=== PATIENT | male | born 1965 | race Hispanic/Latino ===

== ENCOUNTER 2016-06-29 17:29 | Inpatient (IN) | payer OTHER ==
[~2016-06-29] VITALS: Ht 182.9 cm; Wt 107.7 kg
[~2016-06-29 17:29] MED LIST: ALLOPURINOL100 MG PO; INDOCIN25 MG OR; LORTAB 10 PO; LORTAB 10-325 M1 TAB PO; MEDDOSEPAK OR; MOTRIN800 MG PO; NAPROSYN500 MG PO; NO; NO MEDS; PERCOCET 5/325M1 TAB OR
--- NOTE | 2016-06-29 17:30 | NUR ---
PT TRANSPORTED TO ROOM 9 VIA W/C.
--- NOTE | 2016-06-29 18:01 | NUR ---
PT HAD EMESIS [id number] MONTES LIQUID. NOTIFIED.NEW ORDERS RECEIVED. PT GIVEN PHENERGAN VIA IV IN 50CC NS. PT TOLERATED BOLUS.
[2016-06-29 18:08] LABS: HEMATOCRIT 51.1 % (39.0-50.0); HEMOGLOBIN 17.9 g/dl (14.0-18.0); IMMATURE GRANULOCYTES 0.3 % (0.0-1.0); MEAN CELL VOLUME 86.8 fL CALC (80.0-100.0); MEAN CORPUSCULAR HGB 30.4 pG CALC (26.0-32.0); NEUT# 11.74 thou/uL (1.82-7.42); RED BLOOD COUNT 5.89 mill/uL (4.70-6.10)
[2016-06-29 18:14] LABS: AMYLASE 53 u/l (30-110); LIPASE 127 u/l (23-300)
[2016-06-29 18:16] LABS: ALBUMIN 5.1 g/dL (3.2-5.0); ALKALINE PHOSPHATASE 94 u/l (38-126); ANION GAP 21 (6-22 (CALC)); BILIRUBIN, TOTAL 1.1 mg/dL (0.0-1.4); BUN 17 mg/dL (9-20); BUN/CREATININE RATIO 12 (12-20 (CALC)); CALCIUM 9.8 mg/dL (8.4-10.2); CARBON DIOXIDE 25 mmol/l (22-30); CHLORIDE 105 mmol/l (95-108); CREATININE 1.4 mg/dL (0.7-1.3); GFR 53 ML/MIN (>=60 (CALC)); GFR FOR AFR.AMER. > 60 ML/MIN (>=60 (CALC)); GLUCOSE 123 mg/dL (75-110); POTASSIUM 3.8 mmol/l (3.5-5.1); SGOT/AST 53 u/l (17-59); SGPT/ALT 81 u/l (21-72); SODIUM 148 mmol/l (137-146)
--- NOTE | 2016-06-29 18:18 | NUR ---
INITIATED IVF BOLUS FOR BP 77/48. PT ALERT AND CONVERSIVE. MD AWARE. MONITORED PER RN
[2016-06-29 18:27] LABS: MYOGLOBIN 81 ng/mL (0 - 121)
--- NOTE | 2016-06-29 18:36 | NUR ---
PT WITH SLIGHT TREMULOUS SHAKING. WARM BLANKETS APPLIED PT IS RECEIVING FLUID BOLUS IV.BP 117/76
--- NOTE | 2016-06-29 18:50 | NUR ---
RECEIVED REPORT FROM MARIA C HUBBARD. IN ROOM INTRODICED SELF TO PT. NO C/O AT THIS TIME. IVF INFUSING WELL.
--- NOTE | 2016-06-29 18:56 | NUR ---
PO ASA GIVEN PER MD ORDER.
--- NOTE | 2016-06-29 19:56 | NUR ---
PT. RESTING QUIETLY ON STRETCHER, NO C/O CP OR SOB OFFERED.
[2016-06-29 20:43] LABS: URINE BILIRUBIN - DIPSTICK NEGATIVE (NEGATIVE); URINE BLOOD DIPSTICK NEGATIVE (NEGATIVE); URINE CLARITY CLEAR; URINE COLOR YELLOW; URINE GLUCOSE - DIPSTICK NEGATIVE (NEGATIVE); URINE KETONE TRACE mg/dL (NEGATIVE); URINE LEUK ESTERASE NEGATIVE (NEGATIVE); URINE NITRITE - DIPSTICK NEGATIVE (Negative); URINE PH 7.5 (4.5-8.0); URINE PROTEIN - DIPSTICK 30 mg/dL (NEG-TRACE); URINE SPECIFIC GRAVITY 1.015
[2016-06-29 20:47] LABS: BARBITURATES NEGATIVE (NEGATIVE); COCAINE NEGATIVE (NEGATIVE); METHADONE NEGATIVE (NEGATIVE); OXCYCODONE NEGATIVE (NEGATIVE); TETRAHYDROCANNABIONOL NEGATIVE (NEGATIVE); TRICYLIC ANTIDEPRESSANTS NEGATIVE (NEGATIVE)
[2016-06-29 20:54] LABS: URINE RBC 0-2 RBC/hpf (0-5); URINE WBC 0-2 WBC/hpf (0-5)
--- NOTE | 2016-06-29 20:56 | NUR ---
PT. AVANIS PACKED FOR ADMISSION, NO C/O.
--- NOTE | 2016-06-29 21:02 | NUR ---
MD IN ROOM TO DISCUSS CLINICAL FINDINGS WITH PT AND ALSO MAKE HIM AWARE OF ADMISSION. VERBALIZED UNDERSTANDING.
--- NOTE | 2016-06-29 21:20 | NUR ---
Admission Note Report Given to: SHAVON HUBBARD Transported by: Wheelchair X Stretcher Transported with: Nurse X Transporter X Patent IV O2 X Maori Physiotherapist
--- NOTE | 2016-06-29 21:30 | NUR ---
PT. TRANSFERED TO NC VIA STRETCHER, NO C/O.
--- NOTE | 2016-06-29 21:50 | NUR ---
PT.ARRIVED TO FLOOR ACCOMPANIED BY HAYDEE WONG,OF ED; PT.APPEARS STABLE AT THIS TIME, VERY GROGGY, BUT DENIES ANY PAIN; PT.ORIENTED TO ROOM,CALL LIGHT SYSTEM, BED, URINAL; V/S ASSESSED AND IV BOLUS ADMINISTERED ORDERED; CALL LIGHT AND BST W/IN REACH, PO FLUIDS PROVIDED AND PT.ENCOURAGED TO CALL FOR ASSISTANCE NEEDED.
[2016-06-29 21:55] VITALS: BP 98/68
[2016-06-29 23:25] VITALS: BP 119/71
--- NOTE | 2016-06-29 23:30 | NUR ---
PT.MEDICATED ORDERS PROVIDE AND IV FLUID BOLUS COMPLETED AND IV FLUIDS CONTINUED AT 100MLS/HR., PT.DENIES PAIN AT THIS TIME, STATES IT COMES IN WAVES NOW IN MID ABD, POINTING TO SURROUNDING NAVAL AREA; O2 AT BS NEEDED, PT.SAT 98%RA, NOT ON O2 AT THIS TIME.
--- NOTE | 2016-06-30 03:45 | NUR ---
PT.CALLED TO REPORT HIS IV FELL OUT, IV APPEARS TO BE INTACT, MINIMAL BLEEDING FROM IV SITE; NEW IV ACCESSED AND FLUIDS CONTINUED; PT.URINAL EMPTIED OF 400AMBER URINE W/SEDIMENT, STRAINED, BUT NO STONES COLLECTED
[2016-06-30 04:00] VITALS: BP 113/62
--- NOTE | 2016-06-30 05:45 | NUR ---
PT.REPORTED HEADACHE AND C/O ABDOMINAL PAIN 08/19, PT.DOES NOT WANT MORPHINE, MADE HIM TO GROGGY AND MADE HIM FEEL BAD, HE WANTS TO TRY TYLENOL, PT.MEDICATED W/TYLENOL REQUESTED, WILL FOLLOW-UP TO REASSESS
[2016-06-30 05:47] LABS: ALBUMIN 3.7 g/dL (3.2-5.0); BUN 19 mg/dL (9-20); CALCIUM 8.4 mg/dL (8.4-10.2); CALCULATED LDLCHOLESTEROL 81 mg/dL (62-129 (CALC)); CARBON DIOXIDE 27 mmol/l (22-30); CHLORIDE 109 mmol/l (95-108); CREATININE 1.1 mg/dL (0.7-1.3); GFR > 60 ML/MIN (>=60 (CALC)); GFR FOR AFR.AMER. > 60 ML/MIN (>=60 (CALC)); GLUCOSE 112 mg/dL (75-110); HDL CHOLESTEROL 33 mg/dL (>=40); SODIUM 146 mmol/l (137-146); TOTAL CHOLESTEROL 166 mg/dl (0-199); TOTAL TRIGLYCERIDES 261 mg/dl (30-149); VLDL CHOLESTROL 52 mg/dl (8-62 (CALC))
--- NOTE | 2016-06-30 07:25 | NUR ---
PT RESTING WITH EYES CLOSED; NO S/SX OF DISTRESS NOTED; TELE MONITOR IN PLACE; CALL FRANK WITHIN REACH; WILL CONTINUE TO MONITOR.
--- NOTE | 2016-06-30 07:30 | NUR ---
RECEIVED REPORT. PT RESTING WITH EYES CLOSED, EASILY AWAKEN. PT SLIGHTLY FEBRILE REPORTED TO THE NURSE DOM RN, NO C/O PAIN AT THE MOMENT. SAFTEY MEASURES REINFORCED, CALL LIGHT WITHIN REACH BED LOCKED AND TO LOWEST POSTION.
[2016-06-30 08:08] VITALS: BP 116/72
--- NOTE | 2016-06-30 08:16 | NUR ---
DR. BURR IN TO SEE PT; PLAN OF CARE DISCUSSED
--- NOTE | 2016-06-30 09:48 | NUR ---
PT IS UP WALKING, IS SHOWERING AT THE MOMENT LINEN CHANGED ASK TO CALL IF HE NEEDED ASSISTANTS.
--- NOTE | 2016-06-30 10:45 | NUR ---
PT IS HIGH FOLWERS POSTIONS WATCHING MOVIES ON PHONE. NO S/S OF PAIN AT THE MOMENT. SAFTEY MEASURES REINFORCED. BED LOCKED AND TO LOWEST POSTION, ASKKED TO CALL FOR ASST. IF NEEDED. WILL CONT. TO MONITOR
[2016-06-30 11:10] VITALS: BP 130/79
--- NOTE | 2016-06-30 14:02 | NUR ---
PT RESTING WITH EYES CLOSED; AROUSED EASILY TO VERBAL STIMULI; NO COMPLAINTS VOICED; CALL FRNAK WITHIN REACH; WILL CONTINUE TO MONITOR.
[2016-06-30 15:23] VITALS: BP 139/83
--- NOTE | 2016-06-30 17:30 | NUR ---
PT MEDICATED FOR C/O ABD PAIN AND LT FLANK PAIN 11/19; IVF INFUSING WITHOUT DIFFICULTY; WILL CONTINUE TO MONITOR.
--- NOTE | 2016-06-30 19:57 | NUR ---
ORDER CLARIFICATION FOR ULTRAM 50 MG PO PRN PAIN TO BE GIVEN FOR MODERATE PAIN RBTO ;WILL CONTINUE TO MONITOR
[2016-06-30 20:10] VITALS: BP 146/83
--- NOTE | 2016-06-30 20:45 | NUR ---
PT RESTING IN SEMI FOWLERS POSITION;PT COMPLAINS OF MODERATE PAIN IN ABDOMEN AND BACK;PT TOLERATING PO CONTRAST WELL AT THIS TIME;IV SITE TO LAC INFUSING WELL;TELE MONITOR IN PLACE READING SR 82;ASSESSMENT COMPLETED;SKIN INTACT;FIRM,DISTRENED ABDOMEN NOTED;PT VERBALIZES THAT MORPHINE GIVEN PREVIOUSLY DID NOT WORK FOR HIS PAIN;PT TO BE MEDICATED DIFFERENTLY FOR PAIN PER MD ORDERS;URINAL EMPTIED AND STRAINED;PT DENIES ANY OTHER NEEDS AT THIS TIME;BED IN LOWEST POSITION WITH CALL LIGHT IN REACH;WILL CONTINUE TO MONITOR
--- NOTE | 2016-06-30 21:10 | NUR ---
PT MEDICATED FOR PAIN RATING 8/10 ON THE PAIN SCALE;PT DENIES ANY OTHER NEEDS AT THIS TIME;WILL CONTINUE TO MONITOR
[2016-07-01] VITALS: BP 141/87
--- NOTE | 2016-07-01 00:30 | NUR ---
PT APPEARS TO BE SLEEPING IN SEMI FOWLERS POSITION;IV FLUIDS INFUSING WELL TO LAC;TELE MONITOR IN PLACE;NO S/S OF DISTRESS NOTED;RESPIRATIONS EVEN AND UNLABORED;BED IN LOWEST POSITION WITH CALL LIGHT IN REACH;WILL CONTINUE TO MONITOR
--- NOTE | 2016-07-01 03:46 | NUR ---
PT SLEEPING IN SEMI FOWLERS POSITION;PT WOKE WHILE HANGING NEW BAG OF FLUIDS;PT DENIES ANY NEEDS AT THIS TIME;PT TOLD TO CALL FOR ASSISTANCE IF NEEDED;URINAL AT BEDSIDE;BED IN LOWEST POSITION WITH CALL LIGHT IN REACH;WILL CONTINUE TO MONITOR
[2016-07-01 04:32] VITALS: BP 124/80
[2016-07-01 06:17] LABS: HEMATOCRIT 40.8 % (39.0-50.0); HEMOGLOBIN 13.9 g/dl (14.0-18.0); IMMATURE GRANULOCYTES 0.3 % (0.0-1.0); MEAN CELL VOLUME 90.1 fL CALC (80.0-100.0); MEAN CORPUSCULAR HGB 30.7 pG CALC (26.0-32.0); MEAN CORPUSCULAR HGB CONC 34.1 g/L CALC (32.0-36.0); NEUT# 2.72 thou/uL (1.82-7.42); RED BLOOD COUNT 4.53 mill/uL (4.70-6.10); RED CELL DISTRI WIDTH 13.2 % (11.5-15.5)
[2016-07-01 06:40] LABS: ANION GAP 12 (6-22 (CALC)); BUN 11 mg/dL (9-20); BUN/CREATININE RATIO 11 (12-20 (CALC)); CALCIUM 8.2 mg/dL (8.4-10.2); CARBON DIOXIDE 28 mmol/l (22-30); CHLORIDE 107 mmol/l (95-108); GFR > 60 ML/MIN (>=60 (CALC)); GFR FOR AFR.AMER. > 60 ML/MIN (>=60 (CALC)); GLUCOSE 107 mg/dL (75-110); POTASSIUM 3.8 mmol/l (3.5-5.1); SODIUM 143 mmol/l (137-146)
[2016-07-01 07:44] VITALS: BP 136/91
--- NOTE | 2016-07-01 07:54 | NUR ---
PT AROUSES EASILY TO VERBAL STIMULI; DENIES PAIN; TELE MONITOR IN PLACE; CALL FRANK WITHIN REACH; WILL CONTINUE TO MONITOR.
[2016-07-01] MEDS ORDERED: ASPIRIN CHEWABL81 MG PO (08:23)
[2016-07-01] MEDS ORDERED: PANTOPRAZOLE SO40 M1 PO (08:23)
[2016-07-01 12:13] VITALS: BP 156/88
--- NOTE | 2016-07-01 12:51 | NUR ---
Discharge instructions given. Patient verbalizes understanding of same. Discharged in stable condition via Wheelchair to Home with *Other. All belongings sent with pt.
== END 2016-07-01 12:46 | disposition home or self-care (01) | DRG 391 ==
LOC: ENPENDDIS → ED 17:29 → ED-I 20:58 → ED 20:59 → MS2 21:00
PROVIDERS: Emergency Medicine; Internal Medicine; ADMIT Internal Medicine; ATTEND Internal Medicine
DX: R10.13 Epigastric pain (principal); R65.11 Systemic inflammatory response syndrome (SIRS) of non-infectious origin with acute organ dysfunction; N17.9 Acute kidney failure, unspecified; R07.9 Chest pain, unspecified; M10.9 Gout, unspecified; J43.2 Centrilobular emphysema; R74.0 Nonspecific elevation of levels of transaminase and lactic acid dehydrogenase [LDH]

== ENCOUNTER 2020-01-24 13:57 | Observation (INO) | payer OTHER ==
[~2020-01-24] VITALS: Ht 182.9 cm; Wt 110.8 kg
[~2020-01-24 13:57] MED LIST changes: +ASPIRIN CHEWABL81 MG PO; +PANTOPRAZOLE SO40 M1 PO
--- NOTE | 2020-01-24 13:58 | NUR ---
PT AMB TO ROOM IN NO ACUTE DISTRESS
--- NOTE | 2020-01-24 14:56 | NUR ---
PT STATES HAVE NO PAIN BUT HAS EXPERIANCED UNCOMFORTABLE BURNING IN STOMACH. MENTIONS FEELING DIZZY A RESULT SINCE THREE DAYS AGO. AOX4. DENIES ANY OTHER S/S OR PAINS. DENIES N/V. CALL LIGHT WITHIN REACH' PT AWARE OF NEEDED URINE
[2020-01-24 15:15] LABS: HEMOGLOBIN 15.7 g/dl (14.0-18.0); IMMATURE GRANULOCYTES 0.1 % (0.0-5.0); MEAN CELL VOLUME 91.8 fL CALC (80.0-100.0); MEAN CORPUSCULAR HGB 30.5 pG CALC (26.0-32.0); MEAN CORPUSCULAR HGB CONC 33.3 g/dL CAL (32.0-36.0); NEUT# 4.26 thou/uL (1.82-7.42); RED BLOOD COUNT 5.14 mill/uL (4.70-6.10); RED CELL DISTRI WIDTH 12.5 % (11.5-15.5)
[2020-01-24 15:21] LABS: HEMATOCRIT 47.2 % (39.0-50.0)
--- NOTE | 2020-01-24 15:30 | NUR ---
PT RESTING ON STRETCHER WITH CALL LIGHT WITHIN REACH. DENIES ANY NEEDS
[2020-01-24 15:43] LABS: URINE BILIRUBIN - DIPSTICK NEGATIVE (NEGATIVE); URINE BLOOD DIPSTICK TRACE-LYSED (NEGATIVE); URINE COLOR YELLOW; URINE GLUCOSE - DIPSTICK NEGATIVE (NEGATIVE); URINE KETONE NEGATIVE (NEGATIVE); URINE LEUK ESTERASE NEGATIVE (NEGATIVE); URINE NITRITE - DIPSTICK NEGATIVE (Negative); URINE PH 5.5 (4.5-8.0); URINE PROTEIN - DIPSTICK NEGATIVE (NEG-TRACE); URINE SPECIFIC GRAVITY 1.025; URINE UROBILINOGEN - DIPSTICK 0.2 E.U./dL (0.2)
[2020-01-24 15:55] LABS: ALKALINE PHOSPHATASE 72 u/l (38-126); AMYLASE 96 u/l (30-110); ANION GAP 13 (6-22 (CALC)); BUN 18 mg/dL (9-20); BUN/CREATININE RATIO 16 (12-20 (CALC)); CARBON DIOXIDE 26 mmol/l (22-30); CHLORIDE 107 mmol/l (95-108); CREATININE 1.2 mg/dL (0.7-1.3); GFR > 60 ML/MIN (>=60 (CALC)); GFR FOR AFR.AMER. > 60 ML/MIN (>=60 (CALC)); LIPASE 120 u/l (23-300); POTASSIUM 4.3 mmol/l (3.5-5.1); SGOT/AST 40 u/l (17-59); SODIUM 142 mmol/l (137-146); TOTAL PROTEIN 8.9 g/dL (6.3-8.2)
[2020-01-24 15:57] LABS: ALBUMIN 4.6 g/dL (3.2-5.0); BILIRUBIN, TOTAL 0.5 mg/dL (0.0-1.4)
[2020-01-24 16:05] LABS: MYOGLOBIN 37 ng/mL (0 - 121)
--- NOTE | 2020-01-24 16:30 | NUR ---
PT UPDATED ON PLAN OF CARE, DENIES ANY NEEDS AT THIS TIME
--- NOTE | 2020-01-24 17:45 | NUR ---
PT NOTIFIED OF PENDING ADMISSION. DENIES ANY FURTHER NEEDS
--- NOTE | 2020-01-24 18:47 | NUR ---
ATTEMPTED TO GET REPORT FROM NURSE SHE STATES THAT SHE IS IN THE MIDDLE OF GETTING REPORT FROM DAYTIME NURSE
--- NOTE | 2020-01-24 18:56 | NUR ---
GAVE REPORT TO MIO/ALEJANDRO
--- NOTE | 2020-01-24 18:57 | NUR ---
GAVE REPORT TO TANNER
--- NOTE | 2020-01-24 19:00 | NUR ---
TO FLOOR BY WC
[2020-01-24 19:05] VITALS: BP 142/93
--- NOTE | 2020-01-24 19:30 | NUR ---
PATIENT ADMITTED TO ROOM 262 VIA STRETCHER WITH ER STAFF. TELE MONITOR WAS APPLIED AFTER ARRIVING TO THE ROOM. PATIENT IS AWAKE ALERT AND ORIENTEDX3. PATIENT C/O BURNING ABD PAIN. ORIENTED TO ROOM AND SURROUNDINGS. INSTRUCTED ON USE OF NURSE CALL LIGHT SYSTEM, TV REMOTE AND TELEPHONE. SAFETY PRECAUTIONS REVIEWED. POC DISCUSSED. WILL CONT TO MONITOR.
--- NOTE | 2020-01-24 20:40 | NUR ---
PATIENT RESTING IN BED-ATE ONLY SMALL AMT OF TURKEY DINNER. MEDICATED FOR ABD PAIN WITH TYLENOL 650MG PO. CONT TO C/O BURNING ABD PAIN ILYA AFTER EATING. TELE MONITOR IN PLACE. IV SITE TO LEFT AC INTACT AND IS HEALTHY WITH GOOD BLOOD RETURN. LUNGS ARE CLEAR. ABD IS SOFT WITH BS+. STATES THAT LAST BM WAS THIS MORNING. NO PERIPHERAL EDEMA NOTED. PULSES ARE PALPABLE. SAFETY PRECAUTIONS REINFORCED. CALL LIGHT IN REACH. WILL CONT TO MONITOR.
--- NOTE | 2020-01-24 21:45 | NUR ---
PATIENT RESTING IN BED-PROTONIX 40MG IVP GIVEN ORDERED. CALL LIGHT IN REACH. WILL CONT TO MONITOR.
[2020-01-25] VITALS (8 sets, daily range): BP systolic 124–151; BP diastolic 69–95
--- NOTE | 2020-01-25 | NUR ---
PATIENT RESTING IN BED POSITIONED ON SIDE-EYES CLOSED. APPEARS SLEEPING. RESP EVEN AND UNLABORED. CALL LIGHT IN REACH. WILL CONT TO MONITOR.
--- NOTE | 2020-01-25 05:13 | NUR ---
PATIENT APPEARS SLEEPING AT THIS TIME WITH EYES CLOSED. RESP ARE EVEN AND UNLABORED. TELE MONITOR IN PLACE. CALL LIGHT IN REACH. WILL CONT TO MONITOR. P
[2020-01-25 05:37] LABS: HEMATOCRIT 47.1 % (39.0-50.0); HEMOGLOBIN 15.4 g/dl (14.0-18.0); MEAN CORPUSCULAR HGB 30.1 pG CALC (26.0-32.0); MEAN CORPUSCULAR HGB CONC 32.7 g/dL CAL (32.0-36.0); RED BLOOD COUNT 5.12 mill/uL (4.70-6.10); RED CELL DISTRI WIDTH 12.6 % (11.5-15.5)
[2020-01-25 06:04] LABS: ALBUMIN 4.2 g/dL (3.2-5.0); ALKALINE PHOSPHATASE 67 u/l (38-126); ANION GAP 13 (6-22 (CALC)); BILIRUBIN, TOTAL 0.5 mg/dL (0.0-1.4); BUN 18 mg/dL (9-20); BUN/CREATININE RATIO 18 (12-20 (CALC)); CALCULATED LDLCHOLESTEROL 39 mg/dL (62-129 (CALC)); CARBON DIOXIDE 23 mmol/l (22-30); CHLORIDE 109 mmol/l (95-108); CHOLESTEROL HDL RATIO 4.9 (<4.4 (CALC)); GFR > 60 ML/MIN (>=60 (CALC)); GFR FOR AFR.AMER. > 60 ML/MIN (>=60 (CALC)); HDL CHOLESTEROL 30 mg/dL (>=40); POTASSIUM 4.4 mmol/l (3.5-5.1); SGOT/AST 39 u/l (17-59); SODIUM 140 mmol/l (137-146); TOTAL CHOLESTEROL 144 mg/dl (0-199); TOTAL PROTEIN 7.8 g/dL (6.3-8.2); TOTAL TRIGLYCERIDES 380 mg/dl (30-149); VLDL CHOLESTROL 76 mg/dl (8-62 (CALC))
--- NOTE | 2020-01-25 07:15 | NUR ---
REPORT RECEIVED FROM ELANARN;PT APPREARS TO BE SLEEPING IN SEMI FOWLERS POSITION;NO S/S OF DISTRESS NOTED;RESPIRATIONS EVEN AND UNLABORED ON RA;TELE MONITORING IN PLACE;ALL SAFETY PRECAUTIONS IN PLACE WITH BED IN THE LOWEST POSITION AND CALL LIGHT IN REACH;WILL CONTINUE TO MONITOR
--- NOTE | 2020-01-25 08:25 | NUR ---
PT RESTING IN SEMI FOWLERS POSITION WATCHING TV,A&O X3;VS OBTAINED AND ASSESSMENT COMPLETED;PT DENIES ANY CURRENT PAIN BUT DOES REPORTS DIZZINESS AND STOMACH BURNING AFTER EATING;RESPIRATIONS EVEN AND UNLABORED ON RA,CLEAR LUNG SOUNDS;ABDOMEN DISTENDED/SOFT ON PALPATION AND ACTIVE IN ALL 4 QUADRANTS;STRONG PEDAL PULSES;SKIN INTACT;TELE MONITORING IN PLACE;#20G TO LAC FLUSHED AND PATENT,SITE APPEARS HEALTHY;PT DENIES ANY ADDITIONAL NEEDS AT THIS TIME AND IS ENCOURAGED TO CALL FOR ASSISTANCE IF NEEDED;FALL PRECAUTIONS IN PLACE WITH BED IN THE LWOEST POSITION AND CALL LIGHT IN REACH;WILL CONTINUE TO MONITOR
--- NOTE | 2020-01-25 08:34 | NUR ---
AT BEDSIDE DISCUSSING POC WITH PT.
--- NOTE | 2020-01-25 09:30 | NUR ---
PT MEDICATED WITH FLU AND PNEUMONIA VACCINE TO RT ARM PER REQUEST, PT EDUCATED ON S/S OF VACCINE REACTION;PT TOLERATED WELL.
[2020-01-25] MEDS ORDERED: LISINOPRIL20 M1 PO (10:39)
[2020-01-25] MEDS ORDERED: ASPIRIN 8181 MG PO (10:40)
[2020-01-25] MEDS ORDERED: METFORMIN HCL1000 MG PO (10:40)
[2020-01-25] MEDS ORDERED: GLIPIZIDE10 M2 PO (10:41)
--- NOTE | 2020-01-25 11:20 | NUR ---
PT RESTING IN SEMI FOWLERS POSITION;RESPIRATIONS EVEN AND UNLABORED ON RA;PT DENIES ANY CURRENT PAIN BUT CONTINUES TO REPORT DIZZINESS EVEN AFTER ANTIVERT ADMINISTARTION;TELE MONITORING IN PLACE;IV SITE PATENT;ACCUCHECK 139, NO COVERAGE NEEDED;ORTHOSTATIC BP OBTAINED AT THIS TIME PER ORDER;SUPINE BP 130/78 HR 74, SITTING BP 130/69 HR 72, STANDING BP 136/95 HR 93;PT RE-POSITIONED INTO BED;PT DENIES ANY ADDITIONAL NEEDS AT THIS TIME AND IS ENCOURAGED TO CALL FOR ASSISTANCE IF NEEDED;FALL PRECAUTIONS REMAIN IN PLACE WITH BED IN THE LOWEST POSITION AND CALL LIGHT IN REACH;WILL CONTINUE TO MONITOR
--- NOTE | 2020-01-25 11:40 | NUR ---
LAB AT BEDSIDE
--- NOTE | 2020-01-25 12:20 | NUR ---
PT MEDICATED WITH MYLANTA 30ML AT THIS TIME PER ORDER;WILL CONTINUE TO MONITOR
--- NOTE | 2020-01-25 15:20 | NUR ---
PT RESTING AT BEDSIDE;RESPIRATIONS EVEN AND UNLABORED ON RA;PT DENIES ANY CURRENT PAIN OR DISCOMFORTS BUT CONTINUES TO REPORT DIZZINESS,ANRP AWARE;IV SITE PATENT;TELE MONITORING IN PLACE;ASSESSMENT REMAINS UNCHANGED AT THIS TIME;PT DENIES ANY ADDITIONAL NEEDS AND IS ENCOURAGED TO CALL FOR ASSISTANCE IF NEEDED;FALL PRECAUTIONS IN PLACE WITH CALL LIGHT IN REACH;WILL CONTINUE TO MONITOR
--- NOTE | 2020-01-25 19:45 | NUR ---
PATIENT SITTING UP IN BED-AWAKE ALERT AND ORIENTEDX3. PATIENT CONT TO C/O BURNING ABD PAIN AND DIZZINESS-BOTH WORSE AFTER EATING. TELE MONITOR IN PLACE. SALINE LOCK TO LAC INTACT AND REMAINS HEALTHY AT THIS TIME WITH GOOD BLOOD RETURN. PATIENT DENIES ANY DIFFICULTY WITH URINATION AND NO STATES NO BM SINCE YESTERDAY 01/24/20. ABD SOFT WITH BS+. SAFETY PRECAUTIONS REINFORCED. CALL LIGHT IN REACH. WILL CONT TO MONITOR.
[2020-01-26] VITALS: BP 120/83
--- NOTE | 2020-01-26 00:22 | NUR ---
PATIENT RESTING IN BED WITH HOB SLIGHTLY ELEVATED WITH EYES CLOSED. RESP ARE EVEN AND UNLABORED. TELE MONITOR IN PLACE. CALL LIGHT IN REACH. WILL CONT TO MONITOR.
[2020-01-26 04:00] VITALS: BP 125/82
--- NOTE | 2020-01-26 04:01 | NUR ---
PATIENT APPEARS SLEEPING AT THIS TIME WITH EYES CLOSED. RESP ARE EVEN AND UNLABORED. CALL LIGHT IN REACH. WILL CONT TO MONITOR.
[2020-01-26 08:03] VITALS: BP 142/89
--- NOTE | 2020-01-26 08:03 | NUR ---
PT SITTING IN BED. A&O X3. NO DISTRESS NOTED. PT DENIES ANY PAIN AT THIS TIME. #20 IV SITE TO LAC PATENT AND EASY TO FLUSH. NO OTHER NEEDS FROM PT AT THIS TIME. ASSESSMENT COMPLETED. DISCUSSED POC. CALL LIGHT IN REACH.CONTINUE TO MONITOR.
[2020-01-26] MEDS ORDERED: ZOFRAN4 MG/TAB PO (10:04)
[2020-01-26] MEDS ORDERED: MECLIZINE25 MG PO (10:04)
[2020-01-26] MEDS ORDERED: OMEPRAZOLE20 MG PO (10:04)
[2020-01-26 11:09] VITALS: BP 129/79
--- NOTE | 2020-01-26 14:59 | NUR ---
Discharge instructions given. Patient verbalizes understanding of same. Discharged in stable condition via wheelchair to home via [employer]'s taxi accompanied by Paulette BURGOS. All belongings sent with pt.
== END 2020-01-26 14:59 | disposition home or self-care (01) | DRG 313 ==
LOC: ED 13:57 → ED-I 17:48 → ED 17:55 → MS2 17:56
PROVIDERS: Emergency Medicine; Nurse Practitioner Family; ADMIT Internal Medicine; ATTEND Internal Medicine
PROC: 3E02340 Introduction of Influenza Vaccine into Muscle, Percutaneous Approach (ICD-10-PCS; principal; 2020-01-25)
PROC: 3E0234Z Introduction of Serum, Toxoid and Vaccine into Muscle, Percutaneous Approach (ICD-10-PCS; 2020-01-25)
DX: R07.9 Chest pain, unspecified (principal); R10.13 Epigastric pain; R42 Dizziness and giddiness; E11.9 Type 2 diabetes mellitus without complications; I10 Essential (primary) hypertension; Z20.828 Contact with and (suspected) exposure to other viral communicable diseases; Z79.84 Long term (current) use of oral hypoglycemic drugs; Z23 Encounter for immunization
CPT/HCPCS: G0378; Q9967; S0164

== ENCOUNTER 2020-10-31 11:45 | Emergency (ER) | payer OTHER ==
[~2020-10-31] VITALS: Ht 182.9 cm; Wt 110.8 kg
[~2020-10-31 11:45] MED LIST changes: +ASPIRIN 8181 MG PO; +GLIPIZIDE10 M2 PO; +LISINOPRIL20 M1 PO; +MECLIZINE25 MG PO; +METFORMIN HCL1000 MG PO; +OMEPRAZOLE20 MG PO; +ZOFRAN4 MG/TAB PO
[2020-10-31] MEDS ORDERED: LIPITOR40 M1 PO (12:24)
[2020-10-31 13:15] VITALS: BP 151/91
[2020-10-31 13:20] LABS: HEMATOCRIT 44.8 % (39.0-50.0); HEMOGLOBIN 14.8 g/dl (14.0-18.0); IMMATURE GRANULOCYTES 0.2 % (0.0-5.0); MEAN CELL VOLUME 91.4 fL CALC (80.0-100.0); MEAN CORPUSCULAR HGB 30.2 pG CALC (26.0-32.0); NEUT# 6.7 thou/uL (1.82-7.42); RED BLOOD COUNT 4.9 mill/uL (4.70-6.10); RED CELL DISTRI WIDTH 12.4 % (11.5-15.5)
[2020-10-31 13:28] LABS: ALBUMIN 4.3 g/dL (3.2-5.0); ALKALINE PHOSPHATASE 82 u/l (38-126); ANION GAP 14 (6-22 (CALC)); BILIRUBIN, TOTAL 0.4 mg/dL (0.0-1.4); BUN 14 mg/dL (9-20); BUN/CREATININE RATIO 12 (12-20 (CALC)); CHLORIDE 106 mmol/l (95-108); CREATININE 1.1 mg/dL (0.7-1.3); GFR > 60 ML/MIN (>=60 (CALC)); GFR FOR AFR.AMER. > 60 ML/MIN (>=60 (CALC)); LIPASE 146 u/l (23-300); POTASSIUM 4.2 mmol/l (3.5-5.1); SGOT/AST 29 u/l (17-59); SODIUM 144 mmol/l (137-146); TOTAL PROTEIN 8.7 g/dL (6.3-8.2)
[2020-10-31 13:31] LABS: CARBON DIOXIDE 28 mmol/l (22-30)
[2020-10-31] MEDS ORDERED: MECLIZINE25 MG PO (14:23)
== END 2020-10-31 14:49 | disposition home or self-care (01) | DRG 149 ==
LOC: ED 11:45
PROVIDERS: Family Medicine
DX: R42 Dizziness and giddiness (principal); E11.9 Type 2 diabetes mellitus without complications; I10 Essential (primary) hypertension; Z79.84 Long term (current) use of oral hypoglycemic drugs

== ENCOUNTER 2022-06-28 16:51 | Emergency (ER) | payer OTHER ==
[~2022-06-28] VITALS: Ht 182.9 cm; Wt 99.0 kg
[~2022-06-28 16:51] MED LIST changes: +LIPITOR40 M1 PO
[2022-06-28 19:35] VITALS: BP 133/93
== END 2022-06-28 19:46 | disposition home or self-care (01) | DRG 556 ==
LOC: ED 16:51
DX: M25.562 Pain in left knee (principal); E11.9 Type 2 diabetes mellitus without complications; I10 Essential (primary) hypertension; Z79.84 Long term (current) use of oral hypoglycemic drugs